=== PATIENT | male | born 1980 | race Caucasian/White ===

== ENCOUNTER → 2017-01-17 | Outpatient (CLI) | payer OTHER ==
[~2017-01-17] MED LIST: LORTAB 5/500 501 TAB PO; PERCOCET 325 MG1 TA2 PO; PROMETHAZINE12.5 M5 PO
== END ==
LOC: COL.RAD 11:49
DX: R10.11 Right upper quadrant pain (principal); R93.2 Abnormal findings on diagnostic imaging of liver and biliary tract